=== PATIENT | female | born 1940 | race Caucasian/White ===

== ENCOUNTER 2024-05-16 18:40 | Emergency (ER) | payer MEDICARE, OTHER, SELFPAY ==
[2024-05-16 19:01] VITALS: BP 149/71; PULSE 82; RESP 20; TEMP 36.9; O2SAT 97; BMI 54.9
--- NOTE | 2024-05-16 19:06 | ED_ITS ---
HPI - General Adult General Chief complaint: Skin/Abscess/Foreign Body Stated complaint: fall rt leg laceration sent from Urgent care Time Seen by Provider: 05/16/24 22:10 Source: patient, RN notes reviewed and old records reviewed Mode of arrival: ambulatory Limitations: no limitations History of Present Illness ED Provider: Vicky HPI narrative: 83-year-old female past medical history significant for obesity presents for evaluation of a wound to her right christianson. Patient was trying to get into her house. She lost her balance while stepping up onto the concrete steps. She did not fall but stumbled to her side In doing so she scraped her right christianson against the concrete. She has a large wound to the right christianson. She went to urgent care but was referred to the ED She is not anticoagulated Related Data Previous Rx's ?Medication ?Instructions ?Recorded cephalexin 500 mg tablet 500 mg PO Q8H #15 tabs 05/16/24 Allergies Allergy/AdvReac Type Severity Reaction Status Date / Time sulfamethoxazole Allergy Rash Verified 05/16/24 19:05 [From Bactrim] trimethoprim [From Bactrim] Allergy Rash Verified 05/16/24 19:05 Review of Systems 2 Constitutional: Constitutional: Denies chills, Denies fever(s) and Denies headache(s) ENT: Denies headache(s) Musculoskeletal: Musculoskeletal: Denies arthralgias, Denies joint swelling and Denies limited range of motion Integumentary/Breasts: Skin/Breast: Reports wounds Neurologic: Denies headache(s) PMFSH Social History Social History Advance Directives: No Advance Directives Information Provided: Yes Physical Exam ED Vital Signs: Vital Signs - 24 hr 05/16/24 19:01 Temperature 98.4 F Pulse Rate 82 Respiratory Rate 20 Blood Pressure 149/71 H Pulse Oximetry 97 Oxygen Delivery Method Room Air BMI result Body Mass Index 54.9 Const General: healthy appearing, comfortable, no acute distress, alert and awake; No acute distress Nutritional Appearance: well nourished and obese morbidly obese Orientation/consciousness: patient oriented x3 HENMT Head: Yes normocephalic and Yes atraumatic Eyes Eyelids: Yes eyelids normal Conjunctivae: conjunctivae normal Sclerae: sclerae normal Corneas: corneas normal Pupils: Equal, round and reactive pupils present EOM: EOMs intact bilaterally Neck Neck: Yes full ROM Resp Effort & Inspection: normal respiratory effort, able to speak in complete sentences and not labored Skin Other: There is a large approximately 4 x 8 cm skin flap/skin tear. The overlying skin is very thin and friable. General skin exam: elasticity normal Neuro General: patient oriented x3 Cranial nerves: Yes Equal, round and reactive pupils present and Yes Bilaterally intact EOM present Cognition (Neuro): normal cognition Extrem Other: Moving all extremities well without any obvious deformities Course Course Course Narrative: This is a rapid medical exam performed by Jessi Altamirano PA-C. Patient was an 83-year-old female who presents with right christianson injury prior to arrival. Patient was walking up steps, she tripped, injuring the right anterior christianson. Patient was ambulatory after the fall. She is not on a blood thinner. Patient has sustained a skin tear/laceration, tetanus not up-to-date. I do not feel the patient requires imaging, she was ambulatory after injuring the right christianson. She is stable and can return to the waiting room pending her full medical assessment. Medications Administered Discontinued Medications Generic Name Dose Route Start Last Admin Trade Name Freq PRN Reason Stop Dose Admin Cephalexin HCl 500 mg 05/16/24 22:40 05/16/24 22:44 Cephalexin 500 Mg Capsule PO 05/16/24 22:41 500 mg ONCE ONE Administration Diphtheria/Tetanus/Acell Pertussis 0.5 ml 05/16/24 19:05 05/16/24 22:44 Diphth,Pertus(Acell),Tet Adult 0.5 Ml Syringe IM 05/16/24 19:06 0.5 ml .ONCE ONE Administration Medical Decision Making Medical Decision Making MDM Narrative: 83-year-old female presents for evaluation of a right christianson wound. This is a superficial wound but rather large. The overlying skin is very thin and friable. I did attempt to pull it closed to cover the wound. This is not amenable to laceration repair with sutures as the skin is 2 friable and would not hold his suture. We will clean the wound with normal saline and povidone, wrap it with a sterile dressing and discharge the patient home. I will give the patient a short course of oral antibiotics to help prevent infection. The patient's tetanus was updated today. She would not actually fall, she would not hit her head or consciousness. No indication for emergent imaging Differential Diagnosis Differential Diagnoses: The differential diagnosis associated with the presentation includes Laceration Skin tear Puncture wound Abrasion Discharge Plan Discharge Clinical Impression: Noninfected skin tear of right leg Patient Disposition: Home, Self-Care Instructions: Skin Tear (ED) Additional Instructions: The wound on your leg is a skin tear. Unfortunately it is not possible to close this with sutures due to the thin, friable skin. The wound was cleaned and dressed in the ER. Your tetanus was updated Take antibiotics 3 times a day for the next 5 days to prevent infection Follow-up with your primary doctor Prescriptions: New cephalexin 500 mg tablet 500 mg PO Q8H Qty: 15 0RF Print Language: Croatian
--- NOTE | 2024-05-16 22:43 | PC.NURSE ---
right christianson skin tear cleaned with NS/providine solution and wrapped with dsd. Pt educated on daily changes/and oversaturation dressing changes and s/sx of infection to monitor for.
[2024-05-16] MEDS: Diphth,Pertus(ACell),Tet Adult 0.5 ML SYRINGE IM (22:44)
[2024-05-16] MEDS: cephALEXin 500 MG CAPSULE PO (22:44)
[2024-05-16 22:48] VITALS: BP 149/71; PULSE 82; RESP 20; TEMP 36.9; O2SAT 97
== END 2024-05-16 22:53 | disposition home or self-care (01) ==
PROVIDERS: Emergency Provider Internal Medicine; PCP Internal Medicine
DX: S81.811A Laceration without foreign body, right lower leg, initial encounter (principal); W01.0XXA Fall on same level from slipping, tripping and stumbling without subsequent striking against object, initial encounter; Y93.9 Activity, unspecified; Y92.89 Other specified places as the place of occurrence of the external cause; Y99.8 Other external cause status; Z23 Encounter for immunization
CPT/HCPCS: 90471; 90715; 99282; 99284

== ENCOUNTER 2024-08-11 11:00 | Outpatient (RCR) | payer MEDICARE, OTHER, SELFPAY | END 2024-09-11 11:58 | disposition home or self-care (01) | LOC: HO.WCC 11:00 | PROVIDERS: PCP Internal Medicine; Visit Provider Surgery | DX: I87.331 Chronic venous hypertension (idiopathic) with ulcer and inflammation of right lower extremity (principal); L97.812 Non-pressure chronic ulcer of other part of right lower leg with fat layer exposed; Q82.0 Hereditary lymphedema; Z79.899 Other long term (current) drug therapy | CPT/HCPCS: 11042; 11045; 97597; 99212; 99213 ==